=== PATIENT | female | born 1960 | race Caucasian/White ===

== ENCOUNTER 2020-05-26 18:59 | Emergency (ER) | payer OTHER ==
[~2020-05-26] VITALS: Ht 160 cm; Wt 60.0 kg
--- NOTE | 2020-05-26 19:11 | NUR ---
THIS IS A 59YO F BIB EMS FROM HOME W/ C/O SUBSTERNAL CP W/ INSPIRATION ONLY. PT REPORTS SEVERE GERD AND GLUTEN SENSITIVITY, CONSUMED 2 BEERS AND 2 SHOTS OF WHISKEY TODAY. FATHER PASSED ON SATURDAY, +COVID. PT REPORTS NO PHYSICAL CONTACT BUT PICKED UP HIS BELONGINGS ON SATURDAY. PIV SPRAYER INSECTICIDE. RECEIVED 324MG ASPIRIN SPRAYER INSECTICIDE. PT CONNECTED TO ALL MONITORING, VSS, NADN. RESTING ON [facility] W/ CALL LIGHT IN REACH, AWAITING ED EVAL.
--- NOTE | 2020-05-26 19:19 | NUR ---
LATE ENTRY: BS REPORT FROM CATARINA MOREIRA. PT CARE TRANSFERRED AT THIS TIME. GALI HWANG AT BS. PT SITTING UP IN [facility], SISTER AT BS. PT STATES SHE HAS EXTREME HTN HX. DENIES ANY OTHER HEART HEALTH DIAGNOSIS, PT DENIES HEAD PAIN, STATES "I HAVE THE MOST INCREDIBLE HEARTBURN AND IT HURTS TO BREATHE IN AND NOT OUT." DENIES SWELLING IN LEGS, PULSES 2+ IN ALL EXTREMITIES. WCTM.
[2020-05-26] MEDS ORDERED: OLME1TAB22 PO (19:27)
[2020-05-26] MEDS ORDERED: MAALOX/HYOSCYAMINE/LIDOCAINE 45 ML BTL PO ONE (19:30)
[2020-05-26] MEDS ORDERED: MAALOX/HYOSCYAMINE/LIDOCAINE 45 ML BTL ONE (19:33)
[2020-05-26 20:03] LABS: BASOPHILS # (AUTO) 0.03 x10^3/uL (0-0.1); BASOPHILS % (AUTO) 0 % (0-1); EOSINOPHILS # (AUTO) 0.11 x10^3/uL (0-0.4); EOSINOPHILS % (AUTO) 2 % (1-7); LYMPHOCYTES % (AUTO) 30 % (22-44); MD NO; MEAN CORPUSCULAR HEMOGLOBIN 30.3 pg (27.0-34.8); MEAN CORPUSCULAR HGB CONC 33.1 g/dL (32.4-35.8); MEAN CORPUSCULAR VOLUME 91.6 fL (80-100); MEAN PLATELET VOLUME 7.7 fL (7.4-10.4); MONOCYTES # (AUTO) 0.47 x10^3/uL (0.2-0.8); MONOCYTES % (AUTO) 7 % (2-9); NEUTROPHILS # (AUTO) 4.42 x10^3/uL (1.8-6.8); NEUTROPHILS % (AUTO) 62 % (42-75); PLATELET COUNT 274 x10^3/uL (130-400); RED BLOOD COUNT 4.19 x10^6/uL (3.82-5.3); RED CELL DISTRIBUTION WIDTH 13.8 % (9.6-15.2)
[2020-05-26] MEDS ORDERED: ONDANSETRON 2MG/ML, 2ML ONE (20:11)
[2020-05-26 20:12] LABS: ANION GAP 6 mmol/L (5-15); CALCIUM 8.8 mg/dL (8.5-10.1); CHLORIDE 108 mmol/L (98-107)
[2020-05-26] MEDS ORDERED: ONDANSETRON ODT 4 MG ONE (20:14)
--- NOTE | 2020-05-26 20:15 | NUR ---
PT RESTING IN GURNEY, SITTING UP, STATES "THE GI MED HELPED BUT MY HEARTBURN IS COMING BACK REALLY BAD". PT NAD, CONDITION UNCHANGED. SISTER AT . WCTM. WAITING ON REST RESULTS.
[2020-05-26 20:17] LABS: ALANINE AMINOTRANSFERASE 23 U/L (12-78); ALKALINE PHOSPHATASE 50 U/L (45-117); BILIRUBIN,TOTAL 0.3 mg/dL (0.2-1.0); CREATININE 0.73 mg/dL (0.55-1.02); TOTAL PROTEIN 7.6 g/dL (6.4-8.2); TROPONIN I < 0.015 ng/mL (0.000-0.045)
[2020-05-26] MEDS ORDERED: ONDANSETRON ODT 4 MG PO ONE (20:30)
--- NOTE | 2020-05-26 20:37 | NUR ---
PT PLACED ON 2L NC FOR LOW O2 SATS WHEN SLEEPING. WCTM.
--- NOTE | 2020-05-26 20:45 | NUR ---
PT TO CT VIA GURNEY, APPEARS COMFORTABLE, CONDITION UNCHANGED. NAD, P/W/D
[2020-05-26] MEDS ORDERED: OMNIPAQUE 350 MG/ML, 100ML BOTTLE ONE (21:11)
--- NOTE | 2020-05-26 21:16 | NUR ---
PT BACK FROM CT, RESTING IN [facility], SISTER AT , NO OTHER CHANGES IN CONDITION, APPEARS COMFORTABLE NOW, WCTM. WAITING ON CT RESULTS.
[2020-05-26 21:21] VITALS: BP 109/64
--- NOTE | 2020-05-26 21:56 | NUR ---
Patient given discharge instructions and they have confirmed that they understand the instructions. Patient ambulatory with steady gait. DENIES ADDITIONAL QUESTIONS OR NEEDS AT THIS TIME. NAD, P/W/D, VSS. NO BELONGINGS LEFT IN THE ROOM AT TIME OF DC.
== END 2020-05-26 22:10 | disposition home or self-care (01) ==
LOC: ED 19:30
DX: R07.89 Other chest pain (principal); R55 Syncope and collapse; R51 Headache; R41.0 Disorientation, unspecified; R11.0 Nausea; R94.31 Abnormal electrocardiogram [ECG] [EKG]; I10 Essential (primary) hypertension
CPT/HCPCS: 36415; 70450; 70496; 71045; 80053; 84484; 85025; 85379; 93005; 99285; Q0162; Q9967